=== PATIENT | female | born 1960 | race Caucasian/White ===

== ENCOUNTER → 2017-10-02 | Outpatient (CLI) | payer BC | LOC: RAD 13:43 | DX: Z12.31 Encounter for screening mammogram for malignant neoplasm of breast (principal) ==

== ENCOUNTER → 2018-12-18 | Outpatient (CLI) | payer BC | LOC: RAD 11:54 | DX: Z12.31 Encounter for screening mammogram for malignant neoplasm of breast (principal) ==